=== PATIENT | female | born 1985 | race Caucasian/White ===

== ENCOUNTER 2019-07-13 16:35 | Emergency (ER) | payer OTHER, SELFPAY ==
--- NOTE | 2019-07-13 16:48 | ED.GENADULT ---
HPI - General Adult General Chief complaint: Upper Respiratory Infection Stated complaint: sore throat/achey Source: patient and RN notes reviewed Mode of arrival: ambulatory Limitations: no limitations History of Present Illness HPI narrative: This is a 34 years old female presents to the office for an evaluation of possible strep. Complains of a little sore throat, sinus congestion/drainage and feeling achy. States, she was presumptively treated for strep throat two weeks ago because her kids got streps and she had all of the symptoms. Symptoms got better while she was on antibiotic and after. However, her kids retested positive again two days ago for strep. She concerned that she may also have strep, she supposes to be going out of town in a couple day. No treatment so far. She had influenza vaccine for this season. Related Data Home Medications Medication Instructions Recorded Confirmed No Home Medications 07/13/19 07/13/19 Allergies Allergy/AdvReac Type Severity Reaction Status Date / Time Sulfa (Sulfonamide Allergy Unknown HIVES Verified 07/13/19 16:37 Antibiotics) Review of Systems Review of Systems: Narrative: CONSTITUTIONAL: Denies fever. Reports feeling achy ENT: Reports congestion, sore throat. Denies otalgia. CARDIOVASCULAR: Denies chest pain, palpitation, edema. RESPIRATORY: Denies dyspnea, wheezing, cough GASTROINTESTINAL: Denies abdominal pain, nausea, vomiting, diarrhea. GENITOURINARY: Denies urinary symptoms or discharge SKIN: Denies rash MUSCULOSKELETAL: Denies acute back pain NEUROLOGIC: Denies lightheaded PMFSH Social History Social History (Updated 07/13/19 @ 17:11 by CASIMIRO Stroud) Smoking status: Never smoker Comments At time of signature, I agree with nursing past medical, surgical, social and family history. There is no relevant family history pertinent to the presenting complaint. Exam Narrative: Exam Narrative: GENERAL: This is a well-nourished, well-developed patient, in no apparent distress. EARS: External ears normal, auditory canals clear and without drainage, TMs normal without perforation. Hearing grossly intact. NOSE: External nose normal with no obvious nasal discharge, nares without redness, no rhinorrhea. THROAT: Mucous membranes moist, posterior pharynx pink with drainage NECK: Neck supple, non-tender without lymphadenopathy, masses or thyromegaly. CARDIOVASCULAR: Regular rate and rhythm without murmurs, gallops, or rubs. RESPIRATORY: Clear to auscultation. Breath sounds equal bilaterally. No wheezes, rales, or rhonchi. GASTROINTESTINAL: Abdomen soft, non-tender, nondistended. Bowel sounds are active. No guarding. SKIN: warm, intact with no suspicious lesions or rash, good texture and turgor. NEURO: awake, alert, and oriented to person, place and time. There were no obvious focal neurologic abnormalities. Steady gait Redmond Coma Scale Eye Opening: Spontaneous 4 [place] Coma Scale Motor: Obeys Commands 6 [place] Coma Scale Verbal: Oriented 5 Course Vital Signs Vital signs: Vital Signs Temperature 98.8 F 07/13/19 16:52 Pulse Rate 71 07/13/19 16:52 Respiratory Rate 18 07/13/19 16:52 Blood Pressure 123/83 07/13/19 16:52 Pulse Oximetry 100 07/13/19 16:52 Temperature 98.8 F 07/13/19 16:52 Pulse Rate 71 07/13/19 16:52 Respiratory Rate 18 07/13/19 16:52 Blood Pressure 123/83 07/13/19 16:52 Pulse Oximetry 100 07/13/19 16:52 Medical Decision Making MDM Narrative Medical decision making narrative: Discharge instructions reviewed with patient, as well as provided in writing per nursing staff. The instructions also include specific and strict return/GO TO THE ER as well as f/u information. All questions have been answered, and the patient deny any further questions with discharge and discharge plan. Differential Diagnosis Differential Diagnosis: pneumonia, Allergic Rhinitis, Upper respiratory cough syndrome, Pharyng
[2019-07-13 16:52] VITALS: BP 123/83; PULSE 71; RESP 18; TEMP 37.1; O2SAT 100
== END 2019-07-13 17:09 | disposition home or self-care (01) ==
PROVIDERS: Emergency Provider Nurse Practitioner
DX: J02.9 Acute pharyngitis, unspecified (principal)
CPT/HCPCS: 87081; 87880; 99203; G0463